=== PATIENT | male | born 1985 | race Caucasian/White ===

== ENCOUNTER 2020-04-20 16:45 | Emergency (ER) | payer MEDICAID ==
[~2020-04-20] VITALS: Ht 170.2 cm; Wt 90.7 kg
[2020-04-20 16:53] VITALS: BP 166/100
[2020-04-20] MEDS ORDERED: LIDOCAINE 1% INJ 50 ML MDV IJ ONE (17:01)
--- NOTE | 2020-04-20 17:38 | NUR ---
ROSARIO VELARDE AT BEDSIDE TO REMOVE FOREIGN BODY FROM RING FINGER
[2020-04-20] MEDS ORDERED: TDAP [DIPH/PERTUSSIS/TET] 0.5 ML VIAL IM ONE ×2 (17:45→18:00)
== END 2020-04-20 18:06 | disposition home or self-care (01) ==
LOC: ER 16:53
DX: S60.454A Superficial foreign body of right ring finger, initial encounter (principal); W45.8XXA Other foreign body or object entering through skin, initial encounter; Y93.89 Activity, other specified; Y92.89 Other specified places as the place of occurrence of the external cause; Y99.8 Other external cause status
CPT/HCPCS: 10120; 73140; 90471; 90715; 99285; J3490